=== PATIENT | female | born 1990 | race Caucasian/White ===

== ENCOUNTER 2018-04-14 17:52 | Emergency (ER) | payer MEDICARE, MEDICAID ==
[2018-04-14] MEDS ORDERED: OXYCODONE HCL IR 5 MG TABLET PO ONE (18:11)
[2018-04-14] MEDS ORDERED: ONDANSETRON 4 MG TAB.RAPDIS PO ONE (18:11)
--- NOTE | 2018-04-14 18:13 | ER Document Report ---
ED Medical Screen (RME) - General Chief Complaint: Flank Pain Stated Complaint: SIDE PAIN Time Seen by Provider: 04/14/18 18:06 Notes: RAPID MEDICAL EVALUATION DISCLOSURE I have seen this patient as part of a Rapid Medical Evaluation and, if applicable, placed any initially appropriate orders. The patient will be seen and fully evaluated, including a full history and physical exam, by a provider ( in Main ED or Fast Track) when a room becomes available. 28-year-old female here with complaints of right lower quadrant and bilateral lower back pain started yesterday and has progressively worsened. Pain is worse with movement and improved with minimizing movement. She has no fevers chills nausea vomiting dysuria hematuria frequency hesitancy vaginal bleeding/ discharge. She has a history of kidney stones and thought that may be the cause of the issues until the pain moved to the right lower quadrant which then made her think of her appendix. EXAM Mild right lower quadrant TTP but not elsewhere Moderate tenderness to light palpation of the bilateral paraspinal lumbar musculature Strength 5/5 with intact sensation TRAVEL OUTSIDE OF THE [place] IN LAST 30 DAYS: No - Related Data Allergies/Adverse Reactions: diphenhydramine HCl [From Benadryl] Allergy (Verified 04/14/18 18:07) Sulfa (Sulfonamide Antibiotics) Allergy (Verified 04/14/18 18:07) Past Medical History - Social History Chew tobacco use (# tins/day): No Frequency of alcohol use: None Drug Abuse: None Neurological Medical History: Reports: Hx Migraine, Hx Seizures Renal/ Medical History: Reports: Hx Kidney Stones. Denies: Hx Peritoneal Dialysis Psychiatric Medical History: Reports: Hx Bipolar Disorder, Hx Depression, Hx Personality Disorder Past Surgical History: Reports: Hx Orthopedic Surgery - bilat wrist; bilat great toe - Immunizations Hx Diphtheria, Pertussis, Tetanus Vaccination: Yes - unknown Physical Exam - Vital signs Vitals: Temp Pulse Resp BP Pulse Ox 97.6 F 46 L 20 112/59 L 98 04/14/18 17:57 04/14/18 17:57 04/14/18 17:57 04/14/18 17:57 04/14/18 17:57 Course - Vital Signs Vital signs: Temp Pulse Resp BP Pulse Ox 97.6 F 46 L 20 112/59 L 98 04/14/18 17:57 04/14/18 17:57 04/14/18 17:57 04/14/18 17:57 04/14/18 17:57
[2018-04-14 18:48] LABS: ABSOLUTE BASOPHILS # (AUTO) 0.1 10^3/uL (0.0-0.2); ABSOLUTE EOSINOPHILS # (AUTO) 0.2 10^3/uL (0.0-0.6); ABSOLUTE LYMPHOCYTES (AUTO) 2.3 10^3/uL (0.5-4.7); ABSOLUTE MONOCYTES (AUTO) 0.4 10^3/uL (0.1-1.4); ABSOLUTE NEUT (AUTO) 4.3 10^3/uL (1.7-8.2); BASOPHILS % (AUTO) 0.8 % (0-2); EOSINOPHILS % (AUTO) 2.1 % (0-6); HEMOGLOBIN 12.7 g/dL (12.0-15.5); LYMPHOCYTES % (AUTO) 31.8 % (13-45); MEAN CORPUSCULAR HEMOGLOBIN 28.4 pg (27.0-33.4); MEAN CORPUSCULAR HGB CONC 33.4 g/dL (32.0-36.0); MEAN CORPUSCULAR VOLUME 85 fl (80-97); MONOCYTES % (AUTO) 5.4 % (3-13); PLATELET COUNT 324 10^3/uL (150-450); RED BLOOD COUNT 4.46 10^6/uL (3.72-5.28); RED CELL DISTRIBUTION WIDTH 13.9 % (11.5-14.0); SEGMENTED NEUTROPHILS % (AUTO) 59.9 % (42-78); TOTAL CELLS COUNTED % (AUTO) 100 %; WHITE BLOOD COUNT 7.2 10^3/uL (4.0-10.5)
[2018-04-14] MEDS ORDERED: NORMAL SALINE 1000 ML 1,000 ML IV ONE (19:10)
[2018-04-14 19:13] LABS: ALANINE AMINOTRANSFERASE 26 U/L (9-52); ALBUMIN 3.8 g/dL (3.5-5.0); ALKALINE PHOSPHATASE 100 U/L (38-126); ANION GAP 11 (5-19); ASPARTATE AMINO TRANSFERASE 32 U/L (14-36); BILIRUBIN,DIRECT 0.1 mg/dL (0.0-0.4); BILIRUBIN,TOTAL 0.1 mg/dL (0.2-1.3); BLOOD UREA NITROGEN 6 mg/dL (7-20); CALCIUM 9.2 mg/dL (8.4-10.2); CARBON DIOXIDE 24 mmol/L (22-30); CHLORIDE 109 mmol/L (98-107); GLUCOSE 93 mg/dL (75-110); LIPASE 589.5 U/L (23-300); SODIUM 143.6 mmol/L (137-145); TOTAL PROTEIN 7.4 g/dL (6.3-8.2)
--- NOTE | 2018-04-14 19:21 | ER Document Report ---
ED General - General Mode of Arrival: Ambulatory Information source: Patient TRAVEL OUTSIDE OF THE [place] IN LAST 30 DAYS: No <LILLY DESAI - Last Filed: 04/14/18 21:58> <YRIS TURCIOS - Last Filed: 04/14/18 23:30> - General Chief Complaint: Flank Pain Stated Complaint: SIDE PAIN Time Seen by Provider: 04/14/18 18:06 Notes: 28 y.o female presents to the ED with RUQ, epigastric, RLQ and LLQ pain since last night. Pt also complains of nausea but denies any vomiting, diarrhea or vaginal discharge. She reports her last menstrual period is now. Pt has a PMHx of siezures, tremors and depression for which she takes Latuda, Primidone, Lexapril and Trileptal. 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 (LILLY DESAI) - Related Data Allergies/Adverse Reactions: diphenhydramine HCl [From Benadryl] Allergy (Verified 04/14/18 18:07) Sulfa (Sulfonamide Antibiotics) Allergy (Verified 04/14/18 18:07) Past Medical History - General Information source: Patient - Social History Smoking Status: Never Smoker Chew tobacco use (# tins/day): No Frequency of alcohol use: None Drug Abuse: None Family History: Reviewed & Not Pertinent Patient has suicidal ideation: No Patient has homicidal ideation: No Neurological Medical History: Reports: Hx Migraine, Hx Seizures Renal/ Medical History: Reports: Hx Kidney Stones. Denies: Hx Peritoneal Dialysis Psychiatric Medical History: Reports: Hx Bipolar Disorder, Hx Depression, Hx Personality Disorder Past Surgical History: Reports: Hx Orthopedic Surgery - bilat wrist (dupuytren' s tendonitis); bilat great toe - Immunizations Hx Diphtheria, Pertussis, Tetanus Vaccination: Yes - unknown <LILLY DESAI - Last Filed: 04/14/18 21:58> Review of Systems - Review of Systems Constitutional: No symptoms reported EENT: No symptoms reported Cardiovascular: No symptoms reported Respiratory: No symptoms reported Gastrointestinal: See HPI, Abdominal pain, Nausea. denies: Diarrhea, Vomiting Genitourinary: See HPI, Flank pain Female Genitourinary: See HPI. denies: Vaginal discharge Musculoskeletal: No symptoms reported Skin: No symptoms reported Hematologic/Lymphatic: No symptoms reported Neurological/Psychological: No symptoms reported -: Yes All other systems reviewed and negative <LILLY DESAI - Last Filed: 04/14/18 21:58> Physical Exam <LILLY DESAI - Last Filed: 04/14/18 21:58> <YRIS TURCIOS - Last Filed: 04/14/18 23:30> - Vital signs Vitals: Temp Pulse Resp BP Pulse Ox 97.6 F 46 L 20 112/59 L 98 04/14/18 17:57 04/14/18 17:57 04/14/18 17:57 04/14/18 17:57 04/14/18 17:57 - Notes Notes: Physical Exam: General: Alert, appears well. HEENT: Normocephalic. Atraumatic. PERRL. Extraocular movements intact. Oropharynx clear. Neck: Supple. Non-tender. Respiratory: No respiratory distress. Clear and equal breath sounds bilaterally. Cardiovascular: Regular rate and rhythm. Abdominal: Morbidly obese. Tender to RUQ, epigastrium, RLQ, LLQ and suprapubic region. No distension. Normal Bowel Sounds. Back: Tender to lumbar back muscles. No CVA tenderness to percussion. No deformity or step off. Extremities: Moves all four extremities. Upper extremities: Normal inspection. Normal ROM. Lower extremities: Normal inspection. No edema. Normal ROM. Neurological: Normal cognition. AAOx3. Normal speech. Psychological: Normal affect. Normal Mood. Skin: Warm. Dry. Normal color. (LILLY DESAI) Course - Laboratory Result Diagrams: 04/14/18 18:31 04/14/18 18:31 <LILLY DESAI - Last Filed: 04/14/18 21:58> - Laboratory Result Diagrams: 04/14/18 18:31 04/14/18 18:31 - Diagnostic Test Radiology reviewed: Reports reviewed - CT Scan shows stranding of the tail the pancreas consistent with pancreatitis. Right upper quadrant ultrasound shows mild hepatic steatosis, otherwise unremarkable. <YRIS TURCIOS - Last Filed: 04/14/18 23:30> - Vital Signs Vital signs: Temp Pulse Resp BP Pulse Ox 97.6 F 46 L 20 112/59 L 98 04/14/18 17:57 04/14/18 17:57 04/14/18 17:57 04/14/18 17:57 04/14/18 17:57 - Laboratory Laboratory results interpreted by me: 04/14/18 04/14/18 18:31 18:31 Chloride 109 H BUN 6 L Total Bilirubin 0.1 L Lipase 589.5 H Urine Protein 30 H Urine Bilirubin SMALL H Urine Urobilinogen 2.0 H Discharge <LILLY DESAI - Last Filed: 04/14/18 21:58> <YRIS TURCIOS - Last Filed: 04/14/18 23:30> - Discharge Clinical Impression: Pancreatitis Qualifiers: Chronicity: acute Pancreatitis type: unspecified pancreatitis type Acute pancreatitis complication: unspecified Qualified Code(s): K85.90 - Acute pancreatitis without necrosis or infection, unspecified Condition: Stable Disposition: HOME, SELF-CARE Additional Instructions: Pancreatitis: Pancreatitis is an inflammation of the pancreas, an organ at the back of your abdomen. The pancreas produces insulin and enzymes that digest your food. Pancreatitis can be caused by gallstones in the bile duct, by alcohol or viruses, or by excess fat or calcium in the blood stream. Occasionally, pancreatitis occurs when a stomach ulcer horne through into the pancreas. We try to find the cause of pancreatitis, but some tests can't be done until the pancreas heals. The usual symptoms of pancreatitis are pain in the pit of the stomach that goes straight through to the back, vomiting, and low-grade fever. Severe cases require hospital admission, but many patients with mild pancreatitis do well at home. You will probably need medicine for pain and for vomiting. Sometimes we prescribe medicine to decrease stomach acid secretion and to decrease flow of pancreatic juices. Start with a diet of clear liquids (soda pop, juices). When the pain is decreasing, you can add some simple starches (potato, toast, applesauce). Avoid proteins and fats until you are completely painfree. When you're better, your doctor may suggest treatment to prevent future pancreatitis (such as gallbladder removal). Avoid alcohol forever. Get immediate treatment for any future episodes. Contact your doctor at once or return here if you have increasing pain, shortness of breath, general swelling, increasing size of the abdomen, continued vomiting, muscle spasms, or other new symptoms. Take the pain medications as needed. Take Prilosec OTC once daily. Follow the instructions listed above for pancreatitis. Get plenty of rest. Follow-up with your doctor this week for recheck. RETURN TO THE EMERGENCY ROOM IF ANY NEW OR WORSENING SYMPTOMS. Prescriptions: Oxycodone HCl/Acetaminophen [Percocet 5-325 mg Tablet] 1 tab PO ASDIR PRN #15 tablet PRN Reason: Forms: Return to Work Scribe Attestation: 04/14/18 22:05 I personally performed the services described in the documentation, reviewed and edited the documentation which was dictated to the scribe in my presence, and it accurately records my words and actions. (YRIS TURCIOS) Scribe Documentation - Scribe Written by Christen:: Christen Skelton 04/14/[id number] acting as scribe for :: Edith <LILLY DESAI - Last Filed: 04/14/18 21:58>
[2018-04-14 19:30] LABS: APPEARANCE,URINE SLIGHTLY-CLOUDY; BILIRUBIN,URINE SMALL (NEGATIVE); COLOR,URINE YELLOW; GLUCOSE, URINE NEGATIVE (NEGATIVE); KETONES,URINE NEGATIVE (NEGATIVE); LEUKOCYTE ESTERASE,URINE NEGATIVE (NEGATIVE); NITRITE,URINE NEGATIVE (NEGATIVE); PROTEIN,URINE 30 mg/dL (NEGATIVE); URINE SPECIFIC GRAVITY 1.027
--- NOTE | 2018-04-14 21:14 | RADIOLOGY REPORT (SQ) ---
EXAM DESCRIPTION: CT ABD/PELVIS WITH IV ONLY COMPLETED DATE/TIME: 04/14/2018 9:01 pm REASON FOR STUDY: RLQ pain; eval appendix COMPARISON: None. TECHNIQUE: CT scan of the abdomen and pelvis performed using helical scanning technique with dynamic intravenous contrast injection. No oral contrast. Images reviewed with lung, soft tissue, and bone windows. Reconstructed coronal and sagittal MPR images reviewed. Delayed images for evaluation of the urinary system also acquired. All images stored on PACS. All CT scanners at this facility use dose modulation, iterative reconstruction, and/or weight based d osing when appropriate to reduce radiation dose to as low as reasonably achievable (ALARA). [facility]: Dose Right [facility]: CareDose [facility]: Dose Right [facility]: Teradose 4D [facility]: The Poker Barrel CONTRAST TYPE AND DOSE: contrast/concentration: Isovue 370.00 mg/ml; Total Contrast Delivered: 100.0 ml; Total Saline Delivered: 72.0 ml RENAL FUNCTION: None required. The patient is less than 50 years old. RADIATION DOSE: CT Rad equipment meets quality standard of care and radiation dose reduction techniq ues were employed. CTDIvol: 21.1 - 29.6 mGy. DLP: 3084 mGy-cm.. LIMITATIONS: None. FINDINGS: LOWER CHEST: No significant findings. No nodules or infiltrates. LIVER: Normal size. No masses. No dilated ducts. SPLEEN: Normal size. No focal lesions. PANCREAS: No masses. No significant calcifications. Stranding around the tail of the pancreas. No f luid collections. Pancreatic duct not dilated. GALLBLADDER: No identified stones by CT criteria. No inflammatory changes to suggest cholecystitis. ADRENAL GLANDS: No significant masses or asymmetry. RIGHT KIDNEY AND URETER: No solid masses. No significant calcifications. No hydronephrosis or hyd roureter. LEFT KIDNEY AND URETER: No solid masses. No significant calcifications. No hydronephrosis or hydr oureter. AORTA AND VESSELS: No aneurysm. No dissection. Renal arteries, SMA, celiac without stenosis. RETROPERITONEUM: No retroperitoneal adenopathy, hemorrhage or masses. BOWEL AND PERITONEAL CAVITY: No masses or inflammatory changes. No free fluid or peritoneal masses. APPENDIX: Normal. PELVIS: No mass. No free fluid. Normal bladder. ABDOMINAL WALL: No masses. No hernias. BONES: No significant or acute findings. OTHER: No other significant finding. IMPRESSION: STRANDING AROUND THE TAIL OF THE PANCREAS COMPATIBLE WITH PANCREATITIS. CORRELATE WITH ENZYMES. NORMAL APPENDIX. TECHNICAL DOCUMENTATION: JOB ID: [id number] Quality ID # [id number]: Final reports with documentation of one or more dose reduction techniques (e.g., Au tomated exposure control, adjustment of the mA and/or kV according to patient size, use of iterative reconstruction technique) 2010 [employer]- All Rights Reserved Reading location - IP/workstation name: [email or web address]
[2018-04-14 22:21] LABS: TRIGLYCERIDES 124 mg/dL (<150)
[2018-04-14] MEDS ORDERED: ONDANSETRON HCL INJ/PF 4 MG/2 ML SDV IV ONE (22:58)
[2018-04-14] MEDS ORDERED: HYDROMORPHONE HCL INJ/PF 2 MG/ML AMPULE IV ONE (22:58)
--- NOTE | 2018-04-14 23:10 | RADIOLOGY REPORT (SQ) ---
EXAM DESCRIPTION: US ABDOMEN LIMITED CLINICAL HISTORY: 28 years Female, Pancreatitis Comparison: CT, same day. LIMITATIONS: None. FINDINGS: Gallbladder, negative sonographic Powers's test, mild hepatic steatosis, a 0.4-cm diameter common bile duct, no intrahepatic ductal dilation, 12-cm right kidney, partially obscured pancreas, visualized vasculature/abdominal aorta, and no significant ascites appear otherwise unremarkable. IMPRESSION: No acute findings. Hepatic steatosis.
[2018-04-14] MEDS ORDERED: HYDROCODONE/ACETAMINOPHEN 5-325 MG (6 TAB/ER DISP) PO PRN (23:31)
[2018-04-15 03:40] VITALS: BP 105/58
== END 2018-04-15 00:45 | disposition home or self-care (01) ==
LOC: ER 17:52
DX: K85.90 Acute pancreatitis without necrosis or infection, unspecified (principal); K76.0 Fatty (change of) liver, not elsewhere classified; R10.11 Right upper quadrant pain; R10.13 Epigastric pain; R10.31 Right lower quadrant pain; R11.0 Nausea; F32.9 Major depressive disorder, single episode, unspecified; R56.9 Unspecified convulsions; Z79.899 Other long term (current) drug therapy; Z88.8 Allergy status to other drugs, medicaments and biological substances; Z88.2 Allergy status to sulfonamides
CPT/HCPCS: 99284; 96361; 96374; 96375; 36415; 83690; 84478; 85025; 81025; 80053; 81001; 76705; 74177; A9270 ×3; J1170; J2405; J7030; S0119

== ENCOUNTER 2018-04-15 20:11 | Emergency (ER) | payer MEDICARE, MEDICAID ==
[2018-04-15] MEDS ORDERED: HYDROMORPHONE HCL INJ/PF 2 MG/ML AMPULE IV ONE (22:08)
[2018-04-15] MEDS ORDERED: ONDANSETRON HCL INJ/PF 4 MG/2 ML SDV IV ONE (22:09)
[2018-04-15] MEDS ORDERED: NORMAL SALINE 1000 ML 1,000 ML IV ONE (22:09)
--- NOTE | 2018-04-15 22:15 | ER Document Report ---
ED General - General Chief Complaint: Abdominal Pain Stated Complaint: ABDOMINAL PAIN Time Seen by Provider: 04/15/18 22:02 Notes: Patient is a 28-year-old female presents with complaint of epigastric abdominal pain pain rating to the back. She was seen yesterday and diagnosed with pancreatitis. She had an ultrasound which showed a normal gallbladder. She had a CT scan which total inflammation around the tail the pancreas and her lipase was slightly elevated. She was discharged home with pain medicine and nausea medicine and a strict diet. She said every time she tries to eat something small, even broth, she developed severe pain. She says her pain is now be continuous and she feels very nauseous like she has to throw up and therefore she is come back to the ER. Pain medicine she was discharged home with she says is not helping. No fevers. Patient is on multiple medications. None of them are new but some of the dosages have changed a little bit in the last couple weeks. TRAVEL OUTSIDE OF THE [place] IN LAST 30 DAYS: No - Related Data Allergies/Adverse Reactions: diphenhydramine HCl [From Benadryl] Allergy (Verified 04/14/18 18:07) Sulfa (Sulfonamide Antibiotics) Allergy (Verified 04/14/18 18:07) Past Medical History - Social History Smoking Status: Never Smoker Frequency of alcohol use: None Drug Abuse: None Family History: Reviewed & Not Pertinent Neurological Medical History: Reports: Hx Migraine, Hx Seizures Renal/ Medical History: Reports: Hx Kidney Stones. Denies: Hx Peritoneal Dialysis Psychiatric Medical History: Reports: Hx Bipolar Disorder, Hx Depression, Hx Personality Disorder Past Surgical History: Reports: Hx Orthopedic Surgery - bilat wrist (dupuytren' s tendonitis); bilat great toe - Immunizations Hx Diphtheria, Pertussis, Tetanus Vaccination: Yes - unknown Review of Systems - Review of Systems Notes: My Normal Review Basic REVIEW OF SYSTEMS: CONSTITUTIONAL : Denies fever, chills, or sweats. Denies recent illness. EENT: Denies eye, ear, throat, or mouth pain or symptoms. Denies nasal or sinus congestion. CARDIOVASCULAR: Denies chest pain. RESPIRATORY: Denies cough, cold, or chest congestion. Denies shortness of breath, difficulty breathing, or wheezing. GASTROINTESTINAL: Epigastric abdominal pain. Denies nausea, vomiting, or diarrhea. Denies constipation. Last BM: GENITOURINARY: Denies difficulty urinating, painful urination, burning, frequency, or blood in urine. MUSCULOSKELETAL: Mid back pain SKIN: Denies rash or skin lesions. NEUROLOGICAL: Denies altered mental status or loss of consciousness. Denies headache. Denies weakness or paralysis or loss of use of either side. Denies problems with gait or speech. Denies sensory or motor loss. ALL OTHER SYSTEMS REVIEWED AND NEGATIVE. Physical Exam - Vital signs Vitals: Temp Pulse Resp BP Pulse Ox 98.3 F 62 16 103/49 L 100 04/15/18 21:16 04/15/18 21:16 04/15/18 21:16 04/15/18 21:16 04/15/18 21:16 - Notes Notes: General Appearance: Well nourished, alert, cooperative, no acute distress, moderate obvious discomfort. Vitals: reviewed, See vital signs table. Head: no swelling or tenderness to the head Eyes: PERRL, EOMI, Conjuctiva clear Mouth: No decreasd moisture Lungs: No wheezing, No rales, No rhonci, No accessory muscle use, good air exchange bilaterally. Heart: Normal rate, Regular rythm, No murmur, no rub Abdomen: Normal BS, soft, No rigidity,moderate epigastric abdominal tenderness, No guarding, no rebound, no abdominal masses, no organomegaly Extremities: strength 5/5 in all extremities, good pulses in all extremities, no swelling or tenderness in the extremities, no edema. Skin: warm, dry, appropriate color, no rash Neuro: speech clear, oriented x 3, normal affect, responds appropriately to questions. Course - Re-evaluation Re-evalutation: 04/16/18 01:00 Patient is pain-free. She still concerned that her pain might return. Her pain returned today after eating broth. I will have her take her nighttime medications being that she has not yet taken those. Informed patient and mother that she really does not meet criteria for admission Ms. in fact that her lipase is greatly improved her laboratory markers are improved. Also her pain improved with 1 dose medicine she has not had any recurrent pain. She still nervous by going home. I did speak with Dr. Mcmullen and agrees that she does not meet criteria for admission. Informed patient I be happy just to watch her here in the ER overnight and treat her pain as needed and then will discharge in morning on a clear liquid diet for at least the next 24 hours. Patient and the mother very happy with this plan and will go forward with this plan. 04/16/18 04:28 Patient started having some recurrent pain. I have ordered another dose pain medicine for her. 04/16/18 06:11 Patient did well throughout the night. She only required a total of 2 doses of pain medicine throughout the entire 7 hours that she was under my care. I feel she is safe to be discharged home. Her lipase has returned to normal. Pain is decreasing. She has not had any vomiting. She has Percocet at home. I talked to her at length about following a strict diet until and drink clear liquids for the next 24 hours and then she can slowly progress to a bland diet. She has a follow-up appointment with her doctor today at 3:00. Patient to return to ER if she has intractable pain, fevers, vomiting, or feels unwell. Patient agrees with plan will be discharged home. Dictation of this chart was performed using voice recognition software; therefore, there may be some unintended grammatical errors. - Vital Signs Vital signs: Temp Pulse Resp BP Pulse Ox 98.3 F 62 16 103/49 L 100 04/15/18 21:16 04/15/18 21:16 04/15/18 21:16 04/15/18 21:16 04/15/18 21:16 - Laboratory Result Diagrams: 04/15/18 23:39 04/15/18 23:39 Laboratory results interpreted by me: 04/15/18 04/15/18 04/16/18 23:39 23:39 00:52 Hgb 11.2 L Hct 33.0 L RDW 14.1 H Chloride 109 H BUN 6 L AST 13 L Total Protein 6.2 L Albumin 3.1 L Urine Blood SMALL H Discharge - Discharge Clinical Impression: Abdominal pain Qualifiers: Abdominal location: epigastric Qualified Code(s): R10.13 - Epigastric pain Condition: Good Disposition: HOME, SELF-CARE Additional Instructions: Please drink only clear liquids for the next 24 hours. Please avoid any solid foods for next 24 hours. After 24 hours can start eating a bland diet you must avoid all foods that have any form of fat in them. This avoid foods with fat in them for the next 3-4 days. Do not drink any alcohol. Return to the ER if you have any pain not responding to medication, vomiting, or fevers. Follow up with your doctor today as scheduled Prescriptions: Ondansetron [Zofran Odt 4 mg Tablet] 1 tab PO Q4H PRN #15 tab.rapdis PRN Reason: For Nausea/Vomiting Referrals: JOSHUA AARON FNP [Primary Care Provider] - 04/16/18
[2018-04-15 23:49] LABS: ABSOLUTE EOSINOPHILS # (AUTO) 0.2 10^3/uL (0.0-0.6); ABSOLUTE LYMPHOCYTES (AUTO) 1.5 10^3/uL (0.5-4.7); ABSOLUTE MONOCYTES (AUTO) 0.7 10^3/uL (0.1-1.4); ABSOLUTE NEUT (AUTO) 5.4 10^3/uL (1.7-8.2); BASOPHILS % (AUTO) 0.5 % (0-2); EOSINOPHILS % (AUTO) 2.4 % (0-6); HEMOGLOBIN 11.2 g/dL (12.0-15.5); LYMPHOCYTES % (AUTO) 19.5 % (13-45); MEAN CORPUSCULAR HEMOGLOBIN 28.8 pg (27.0-33.4); MEAN CORPUSCULAR VOLUME 85 fl (80-97); MONOCYTES % (AUTO) 9.1 % (3-13); PLATELET COUNT 248 10^3/uL (150-450); RED CELL DISTRIBUTION WIDTH 14.1 % (11.5-14.0); SEGMENTED NEUTROPHILS % (AUTO) 68.5 % (42-78); TOTAL CELLS COUNTED % (AUTO) 100 %; WHITE BLOOD COUNT 7.8 10^3/uL (4.0-10.5)
[2018-04-16 00:13] LABS: ALANINE AMINOTRANSFERASE 23 U/L (9-52); ALBUMIN 3.1 g/dL (3.5-5.0); ALKALINE PHOSPHATASE 97 U/L (38-126); ANION GAP 8 (5-19); ASPARTATE AMINO TRANSFERASE 13 U/L (14-36); BILIRUBIN,DIRECT 0.3 mg/dL (0.0-0.4); BILIRUBIN,TOTAL 0.3 mg/dL (0.2-1.3); BLOOD UREA NITROGEN 6 mg/dL (7-20); CARBON DIOXIDE 23 mmol/L (22-30); CHLORIDE 109 mmol/L (98-107); GLUCOSE 98 mg/dL (75-110); LIPASE 237.4 U/L (23-300); POTASSIUM 3.6 mmol/L (3.6-5.0); SODIUM 140.1 mmol/L (137-145); TOTAL PROTEIN 6.2 g/dL (6.3-8.2)
[2018-04-16 01:16] LABS: APPEARANCE,URINE SLIGHTLY-CLOUDY; BILIRUBIN,URINE NEGATIVE (NEGATIVE); COLOR,URINE YELLOW; GLUCOSE, URINE NEGATIVE (NEGATIVE); KETONES,URINE NEGATIVE (NEGATIVE); LEUKOCYTE ESTERASE,URINE NEGATIVE (NEGATIVE); NITRITE,URINE NEGATIVE (NEGATIVE); PROTEIN,URINE NEGATIVE (NEGATIVE); URINE SPECIFIC GRAVITY 1.008; UROBILINOGEN,URINE NEGATIVE mg/dL (<2.0)
[2018-04-16] MEDS ORDERED: HYDROMORPHONE HCL INJ/PF 2 MG/ML AMPULE IV ONE (04:17)
[2018-04-16] MEDS ORDERED: ONDANSETRON ODT 4 MG TAB (6 TAB/ER DISP) PO PRN (06:11)
[2018-04-16 07:14] VITALS: BP 113/56
== END 2018-04-16 07:13 | disposition home or self-care (01) ==
LOC: ER 20:11
DX: R10.13 Epigastric pain (principal); M54.9 Dorsalgia, unspecified; Z88.2 Allergy status to sulfonamides; Z87.442 Personal history of urinary calculi
CPT/HCPCS: 96376; 99284; 96361; 96374; 96375; 36415; 83690; 85025; 81025; 80053; 81001; J1170 ×2; J2405; J7030; A9270